=== PATIENT | female | born 1940 | race Caucasian/White ===

== ENCOUNTER 2021-04-04 11:24 | Inpatient (IN) | payer MEDICARE, OTHER ==
[~2021-04-04] VITALS: Ht 152.4 cm; Wt 53.7 kg
[2021-04-04 11:58] LABS: HEMOGLOBIN 12.6 gm/dl (12.3-15.3); RED BLOOD COUNT 4.31 M/UL (4.00-5.10); WHITE BLOOD COUNT 16.4 K/UL (4.5-11.0)
[2021-04-04 12:20] LABS: BUN/CREATININE RATIO 17 (0-10)
[2021-04-04] MEDS ORDERED: SYMBICORT 16010.2 GM INH (16:21)
[2021-04-04] MEDS ORDERED: ANORO ELLIPTA1 EACH INH (16:22)
[2021-04-04] MEDS ORDERED: LISINOPRIL20 MG PO (16:22)
[2021-04-04] MEDS ORDERED: MONTELUKAST SOD10 MG PO (16:22)
[2021-04-04] MEDS ORDERED: VENTOLIN HFA 66.7 GM INH (16:23)
[2021-04-04] MEDS ORDERED: AMLODIPINE BESYL5 MG PO (17:19)
[2021-04-04] MEDS ORDERED: BAYER BACK & B1 EACH PO (17:21)
[2021-04-04] MEDS ORDERED: VITAMIN D 40400 UNIT PO (17:22)
[2021-04-04] MEDS ORDERED: B COMPLEX1 EACH PO (17:22)
[2021-04-05 00:41] LABS: HEMOGLOBIN 12.2 gm/dl (12.3-15.3); RED BLOOD COUNT 4.17 M/UL (4.00-5.10); WHITE BLOOD COUNT 13.5 K/UL (4.5-11.0)
[2021-04-05 01:09] LABS: BUN/CREATININE RATIO 21 (0-10)
--- NOTE | 2021-04-05 05:52 | NUR ---
NO VOID SINCE EARLIER ATTEMPT TO CALL MD. BLADDER SCANNER SHOWS 430 ML OF URINE.
[2021-04-06 03:01] LABS: RED BLOOD COUNT 3.8 M/UL (4.00-5.10); WHITE BLOOD COUNT 14.8 K/UL (4.5-11.0)
[2021-04-06 03:23] LABS: BUN/CREATININE RATIO 26 (0-10)
[2021-04-06 14:44] LABS: HEMOGLOBIN 10.8 gm/dl (12.3-15.3); RED BLOOD COUNT 3.7 M/UL (4.00-5.10); WHITE BLOOD COUNT 17.2 K/UL (4.5-11.0)
[2021-04-06 15:06] LABS: BUN/CREATININE RATIO 28 (0-10)
[2021-04-07 04:20] LABS: HEMOGLOBIN 9.4 gm/dl (12.3-15.3)
[2021-04-07 04:21] LABS: RED BLOOD COUNT 3.25 M/UL (4.00-5.10)
[2021-04-07 22:51] LABS: HEMOGLOBIN 8.9 gm/dl (12.3-15.3); RED BLOOD COUNT 3.06 M/UL (4.00-5.10)
--- NOTE | 2021-04-07 23:47 | NUR ---
2119 pt started hallucinating, attempting to grab things in the air, not oriented to time or place. pt attempting to get out of bed. PERRLA, pt able to move all extremeties. [address] Villaseñor regarding concerns with pt. Orders to turn off dobutamine drip. Dobutamine stopped. 2149 Dr Villaseñor at bedside to assess pt. Orders received for labs and head ct. Family updated at bedside. 2[address] pt taken to head ct. 5 Dr Villaseñor aware of critical lab results. pt currently appears to be resting comfortably in bed.
[2021-04-08 04:47] LABS: HEMOGLOBIN 8.5 gm/dl (12.3-15.3); RED BLOOD COUNT 2.9 M/UL (4.00-5.10)
[2021-04-08 04:49] LABS: WHITE BLOOD COUNT 14.4 K/UL (4.5-11.0)
[2021-04-09 05:38] LABS: HEMOGLOBIN 8.2 gm/dl (12.3-15.3); RED BLOOD COUNT 2.81 M/UL (4.00-5.10); WHITE BLOOD COUNT 11.3 K/UL (4.5-11.0)
[2021-04-09 06:17] LABS: BUN/CREATININE RATIO 29 (0-10)
[2021-04-10 16:41] LABS: HEMOGLOBIN 9.4 gm/dl (12.3-15.3); RED BLOOD COUNT 3.19 M/UL (4.00-5.10); WHITE BLOOD COUNT 13.2 K/UL (4.5-11.0)
[2021-04-10 17:17] LABS: BUN/CREATININE RATIO 26 (0-10)
[2021-04-11 05:23] LABS: HEMOGLOBIN 8.9 gm/dl (12.3-15.3); RED BLOOD COUNT 3.08 M/UL (4.00-5.10); WHITE BLOOD COUNT 12.2 K/UL (4.5-11.0)
[2021-04-11 05:57] LABS: BUN/CREATININE RATIO 24 (0-10)
[2021-04-12 05:17] LABS: HEMOGLOBIN 9.2 gm/dl (12.3-15.3); RED BLOOD COUNT 3.14 M/UL (4.00-5.10); WHITE BLOOD COUNT 10.5 K/UL (4.5-11.0)
[2021-04-12 05:35] LABS: BUN/CREATININE RATIO 14 (0-10)
[2021-04-13 04:20] LABS: RED BLOOD COUNT 3.12 M/UL (4.00-5.10); WHITE BLOOD COUNT 10.9 K/UL (4.5-11.0)
[2021-04-13 04:23] LABS: BUN/CREATININE RATIO 14 (0-10)
[2021-04-13] MEDS ORDERED: COZAAR 25MG TAB25 MG PO (10:47)
[2021-04-13] MEDS ORDERED: BRILINTA 90 MG90 MG PO (10:47)
[2021-04-13] MEDS ORDERED: LIPITOR40 MG PO (10:47)
[2021-04-13] MEDS ORDERED: FERROUS SULFAT325 M2 PO (10:47)
[2021-04-13] MEDS ORDERED: DOCUSATE SODIU100 MG PO (10:47)
[2021-04-13] MEDS ORDERED: K-DUR TAB 10 M10 MEQ PO (10:47)
[2021-04-13] MEDS ORDERED: MIRALAX17 GM PO (10:47)
[2021-04-13] MEDS ORDERED: LOPRESSOR 25 MG25 MG PO (10:47)
[2021-04-13] MEDS ORDERED: ASPIRIN EC81 MG PO (10:47)
[2021-04-13] MEDS ORDERED: PROTONIX 40 MG40 M1 PO (10:47)
[2021-04-13] MEDS ORDERED: NITROGLYCERIN0.4 MG SL (10:47)
[2021-04-13] MEDS ORDERED: FUROSEMIDE20 MG PO (10:47)
[2021-04-13] MEDS ORDERED: LOVENOX30 MG/0.3 SQ (10:55)
[2021-04-13] MEDS ORDERED: HYDROCODON-ACE1 EAC4 PO (10:57)
[2021-04-13] MEDS ORDERED: OXYCONTIN10 MG PO (10:57)
[2021-04-13] MEDS ORDERED: ZOFRAN4 MG PO (11:01)
[2021-04-13] MEDS ORDERED: PULMICORT FLEX90 MCG INH (11:12)
--- NOTE | 2021-04-13 14:26 | NUR ---
04/13/21 1420 REPORT CALLED TO TIM AT [facility]
[2021-04-23] MEDS ORDERED: MEGESTROL400 MG/11 PO (15:47)
== END 2021-04-13 16:08 | disposition home health service (06) | DRG 246 ==
LOC: ER1 11:24 → PROG CARE 16:01 → CDU 16:01 → CCU 16:01 → PROG CARE 23:11 → CCU 04-06 14:51 → MED SURG 4 04-11 09:58
PROVIDERS: Emergency Medicine; Internal Medicine; Internal Medicine Cardiovascular Disease; ADMIT Family Medicine
PROC: 027035Z Dilation of Coronary Artery, One Artery with Two Drug-eluting Intraluminal Devices, Percutaneous Approach (ICD-10-PCS; principal; 2021-04-05)
PROC: 4A023N7 Measurement of Cardiac Sampling and Pressure, Left Heart, Percutaneous Approach (ICD-10-PCS; 2021-04-05)
PROC: B2111ZZ Fluoroscopy of Multiple Coronary Arteries using Low Osmolar Contrast (ICD-10-PCS; 2021-04-05)
PROC: B41J1ZZ Fluoroscopy of Other Lower Arteries using Low Osmolar Contrast (ICD-10-PCS; 2021-04-05)
PROC: B24BZZZ Ultrasonography of Heart with Aorta (ICD-10-PCS; 2021-04-05)
PROC: B24BZZZ Ultrasonography of Heart with Aorta (ICD-10-PCS; 2021-04-07)
PROC: 06H033Z Insertion of Infusion Device into Inferior Vena Cava, Percutaneous Approach (ICD-10-PCS; 2021-04-07)
PROC: B549ZZA Ultrasonography of Inferior Vena Cava, Guidance (ICD-10-PCS; 2021-04-07)
DX: I21.4 Non-ST elevation (NSTEMI) myocardial infarction (principal); R57.0 Cardiogenic shock; I50.21 Acute systolic (congestive) heart failure; Z20.822 Contact with and (suspected) exposure to COVID-19; J96.01 Acute respiratory failure with hypoxia; J98.11 Atelectasis; E87.1 Hypo-osmolality and hyponatremia; S82.832A Other fracture of upper and lower end of left fibula, initial encounter for closed fracture; E87.6 Hypokalemia; E83.42 Hypomagnesemia; E83.39 Other disorders of phosphorus metabolism; D50.9 Iron deficiency anemia, unspecified; S82.452A Displaced comminuted fracture of shaft of left fibula, initial encounter for closed fracture; E04.1 Nontoxic single thyroid nodule; J44.9 Chronic obstructive pulmonary disease, unspecified; K21.9 Gastro-esophageal reflux disease without esophagitis; I20.9 Angina pectoris, unspecified; E55.9 Vitamin D deficiency, unspecified; W18.30XA Fall on same level, unspecified, initial encounter; S82.302A Unspecified fracture of lower end of left tibia, initial encounter for closed fracture; R29.6 Repeated falls; I10 Essential (primary) hypertension; N81.10 Cystocele, unspecified; J45.909 Unspecified asthma, uncomplicated; Z86.73 Personal history of transient ischemic attack (TIA), and cerebral infarction without residual deficits; Z79.82 Long term (current) use of aspirin; Z79.899 Other long term (current) drug therapy; Z88.5 Allergy status to narcotic agent; Z90.710 Acquired absence of both cervix and uterus; Z80.1 Family history of malignant neoplasm of trachea, bronchus and lung; Y93.89 Activity, other specified; Y92.89 Other specified places as the place of occurrence of the external cause; Y99.8 Other external cause status
CPT/HCPCS: ECHO; 36415; 70450; 71045; 73590; 80048; 80053; 80061; 82140; 82550; 82553; 82962; 83036; 83540; 83550; 83735; 83880; 84100; 84132; 84484; 85025; 85027; 85347; 85610; 85730; 86850; 86900; 86901; 93005; 93306; 93308; 94640; 94664; 94760; 96374; 96375; 97110; 97162; 97166; 97530-GP-CQ; 99152; 99153; 99285; C1725; C1769; C1874; C1887; C1894; C9600; J0461; J1250; J1265; J1644; J1650; J1940; J2250; J2270; J2405; J2550; J3010; J3475; J7030; J7040; J7070; Q0177; Q9965; Q9967; U0002

== ENCOUNTER 2021-05-04 06:31 | Day surgery (SDC) | payer MEDICARE, OTHER ==
[~2021-05-04] VITALS: Ht 152.4 cm; Wt 49.9 kg
[~2021-05-04 06:31] MED LIST: AMLODIPINE BESYL5 MG PO; ANORO ELLIPTA1 EACH INH; ASPIRIN EC81 MG PO; B COMPLEX1 EACH PO; BAYER BACK & B1 EACH PO; BRILINTA 90 MG90 MG PO; COZAAR 25MG TAB25 MG PO; DOCUSATE SODIU100 MG PO; FERROUS SULFAT325 M2 PO; FUROSEMIDE20 MG PO; HYDROCODON-ACE1 EAC4 PO; K-DUR TAB 10 M10 MEQ PO; LIPITOR40 MG PO; LISINOPRIL20 MG PO; LOPRESSOR 25 MG25 MG PO; LOVENOX30 MG/0.3 SQ; MEGESTROL400 MG/11 PO; MIRALAX17 GM PO; MONTELUKAST SOD10 MG PO; NITROGLYCERIN0.4 MG SL; OXYCONTIN10 MG PO; PROTONIX 40 MG40 M1 PO; PULMICORT FLEX90 MCG INH; SYMBICORT 16010.2 GM INH; VENTOLIN HFA 66.7 GM INH; VITAMIN D 40400 UNIT PO; ZOFRAN4 MG PO
[2021-05-04 07:35] LABS: HEMOGLOBIN 10.5 gm/dl (12.3-15.3); RED BLOOD COUNT 3.57 M/UL (4.00-5.10); WHITE BLOOD COUNT 10.6 K/UL (4.5-11.0)
[2021-05-04 07:48] LABS: BUN/CREATININE RATIO 21 (0-10)
[2021-05-04] MEDS ORDERED: ANORO ELLIPTA1 EACH INH (07:55)
[2021-05-05 04:59] LABS: HEMOGLOBIN 7.2 gm/dl (12.3-15.3); RED BLOOD COUNT 2.44 M/UL (4.00-5.10); WHITE BLOOD COUNT 13.5 K/UL (4.5-11.0)
[2021-05-05 05:20] LABS: BUN/CREATININE RATIO 23 (0-10)
[2021-05-06 06:08] LABS: HEMOGLOBIN 8.2 gm/dl (12.3-15.3); WHITE BLOOD COUNT 12.1 K/UL (4.5-11.0)
[2021-05-06 06:10] LABS: RED BLOOD COUNT 2.88 M/UL (4.00-5.10)
[2021-05-06 06:28] LABS: BUN/CREATININE RATIO 18 (0-10)
[2021-05-07 03:25] LABS: RED BLOOD COUNT 2.83 M/UL (4.00-5.10); WHITE BLOOD COUNT 11.2 K/UL (4.5-11.0)
[2021-05-07 03:38] LABS: BUN/CREATININE RATIO 16 (0-10)
[2021-05-08 04:20] LABS: HEMOGLOBIN 8.1 gm/dl (12.3-15.3); RED BLOOD COUNT 2.96 M/UL (4.00-5.10); WHITE BLOOD COUNT 13.1 K/UL (4.5-11.0)
[2021-05-08 05:01] LABS: BUN/CREATININE RATIO 16 (0-10)
[2021-05-08] MEDS ORDERED: LOVENOX30 MG/0.3 SQ (09:54)
== END 2021-05-08 13:00 | disposition home or self-care (01) ==
LOC: M/S 06:31 → OR 06:31 → M/S 14:58 → OR 05-08 13:00
PROVIDERS: Internal Medicine Infectious Disease; Orthopaedic Surgery
DX: S82.232A Displaced oblique fracture of shaft of left tibia, initial encounter for closed fracture (principal); S82.832A Other fracture of upper and lower end of left fibula, initial encounter for closed fracture; I21.4 Non-ST elevation (NSTEMI) myocardial infarction; Z95.5 Presence of coronary angioplasty implant and graft; Z79.82 Long term (current) use of aspirin; E55.9 Vitamin D deficiency, unspecified; Z88.5 Allergy status to narcotic agent; D62 Acute posthemorrhagic anemia; Z20.822 Contact with and (suspected) exposure to COVID-19; R94.31 Abnormal electrocardiogram [ECG] [EKG]; I50.9 Heart failure, unspecified; I11.0 Hypertensive heart disease with heart failure; J44.9 Chronic obstructive pulmonary disease, unspecified; E04.1 Nontoxic single thyroid nodule; X58.XXXA Exposure to other specified factors, initial encounter; Z79.02 Long term (current) use of antithrombotics/antiplatelets
CPT/HCPCS: 36415; 73590; 76000; 80048; 80053; 81001; 83735; 85025; 86850; 86900; 86901; 86920; 93005; 94640; 94760; 97161; 97165; C1713; J0171; J0690; J1100; J1170; J1650; J2370; J2704; J2795; J3010; J7120; P9016; U0002

== ENCOUNTER → 2021-07-10 | Outpatient (CLI) | payer MEDICARE, OTHER | LOC: HEART 5 10:27 | DX: I25.5 Ischemic cardiomyopathy (principal); I08.3 Combined rheumatic disorders of mitral, aortic and tricuspid valves; J90 Pleural effusion, not elsewhere classified; I27.20 Pulmonary hypertension, unspecified | CPT/HCPCS: 93306 ==

== ENCOUNTER → 2022-04-05 | Outpatient (CLI) | payer MEDICARE, OTHER | LOC: NM 08:00 | DX: I25.119 Atherosclerotic heart disease of native coronary artery with unspecified angina pectoris (principal) | CPT/HCPCS: 78452; 93017; A9502; J2785 ==